=== PATIENT | male | born 1985 | race Caucasian/White ===

== ENCOUNTER 2019-06-10 10:36 | Inpatient (IN) | payer OTHER ==
[~2019-06-10] VITALS: Ht 162.6 cm; Wt 61.2 kg
[2019-06-10] MEDS ORDERED: ONDANSETRON 4 MG/2 ML VIAL IV ONE (11:00)
[2019-06-10] MEDS ORDERED: LEVOFLOXACIN 750 MG/D5W 150 ML PIGGYBACK IV ONE (11:00)
[2019-06-10] MEDS ORDERED: METRONIDAZOLE 500 MG/NS 100 ML PIGGYBACK IV ONE (11:00)
[2019-06-10] MEDS ORDERED: MORPHINE SULFATE 2 MG/1 ML DISP.SYRIN IV ONE (11:00)
[2019-06-10] MEDS ORDERED: LEVOFLOXACIN 750MG/D5W 150 ML IV ONE (11:09)
[2019-06-10] MEDS ORDERED: ONDANSETRON 4 MG/2 ML VIAL ONE (11:09)
[2019-06-10] MEDS ORDERED: MORPHINE SULFATE 4 MG/1 ML DISP.SYRIN ONE (11:09)
[2019-06-10] MEDS ORDERED: METRONIDAZOLE 500 MG/NS 100ML 100 ML IV ONE (11:09)
[2019-06-10] MEDS ORDERED: LIDOCAINE 2% (UROJET) 10 ML JELLY MM ONE ×2 (11:15→11:16)
[2019-06-10 11:39] LABS: *BILIRUBIN,URIN NEGATIVE (NEGATIVE); *CLARITY,URINE CLEAR (CLEAR); *COLOR,URINE YELLOW (YELLOW); *KETONES,URINE NEGATIVE (NEGATIVE); *UROBILINOGEN,URINE 0.2 E.U./dl (NORMAL); LEUKOCYTE ESTERASE ,URINE NEGATIVE (NEGATIVE); NITRITE, URINE NEGATIVE (NEGATIVE); PH,URINE 7.5 (5.0-8.0); UGLUCOSE NEGATIVE (NEGATIVE)
[2019-06-10 11:40] LABS: *BLOOD, URINE TRACE (NEGATIVE)
[2019-06-10] MEDS ORDERED: IV NORMAL SALINE 1000 ML BAG IV ONE (11:45)
[2019-06-10 11:46] LABS: BACTERIA,URINE NONE SEEN /HPF (NONE SEEN); SQUAMOUS EPITHELIAL CELL,UR FEW /HPF (NONE SEEN); WBC,URINE 0-3 /HPF (0-3)
[2019-06-10 11:47] LABS: URINE AMORPHOUS PHOSPHATES MODERATE /HPF
[2019-06-10 11:59] LABS: BASOPHILS # (AUTO) 0.1 K/uL (0.0-8.0); BASOPHILS % (AUTO) 0.5 % (0.0-2.0); EOSINOPHILS % (AUTO) 0.2 % (0.0-7.0); HEMATOCRIT 42.6 % (36.7-47.1); HEMOGLOBIN 13.9 g/dL (12.5-16.3); LYMPHOCYTES # (AUTO) 1.9 K/uL (20.0-40.0); LYMPHOCYTES % (AUTO) 10.6 % (20.5-51.5); MEAN CORPUSCULAR HEMOGLOBIN 28.9 uug (23.8-33.4); MEAN CORPUSCULAR HGB CONC 33 g/dL (32.5-36.3); MEAN CORPUSCULAR VOLUME 88.4 fL (73.0-96.2); MONOCYTES # (AUTO) 1.8 K/uL (2.0-10.0); MONOCYTES % (AUTO) 10.2 % (0.0-11.0); NEUTROPHILS % (AUTO) 78.5 % (38.5-71.5); PLATELET COUNT (AUTO) 295 K/uL (152-348); RED BLOOD CELL COUNT(AUTO) 4.82 MIL/uL (4.06-5.63); WHITE BLOOD COUNT (AUTO) 17.8 K/uL (3.6-10.2)
[2019-06-10] MEDS ORDERED: HYDROMORPHONE 1 MG/1 ML DISP.SYRIN ONE (11:59)
[2019-06-10] MEDS ORDERED: HYDROMORPHONE 1 MG/1 ML DISP.SYRIN IV ONE (12:00)
[2019-06-10 12:08] LABS: CREATININE 0.9 mg/dL (0.6-1.3); POTASSIUM 4.1 mmol/L (3.5-5.1)
[2019-06-10 12:14] LABS: BILIRUBIN,DIRECT 0.1 mg/dL (0.0-0.2); BILIRUBIN,TOTAL 0.4 mg/dL (0.2-1.0); TOTAL PROTEIN, SERUM 7.4 g/dL (6.4-8.2)
[2019-06-10] MEDS ORDERED: METOCLOPRAMIDE HCL 10 MG TABLET PO ONE (12:15)
[2019-06-10] MEDS ORDERED: METOCLOPRAMIDE HCL 10 MG TABLET ONE (12:16)
[2019-06-10] MEDS ORDERED: IOHEXOL 300MG/ML 100 ML INFUS..BTL ONE (12:27)
[2019-06-10] MEDS ORDERED: SWABABLE VALVE TRANSFER SET EA MC ONE (12:27)
[2019-06-10] MEDS ORDERED: IV NORMAL SALINE 250 ML IV ONE (13:18)
[2019-06-10] MEDS ORDERED: LIDOCAINE HCL 2% 20 ML VIAL ONE (13:19)
[2019-06-10] MEDS ORDERED: LET TOPICAL SOLUTION 8 ML UDC ONE (13:19)
[2019-06-10] MEDS ORDERED: SODIUM BICARBONATE 4.2 % (NEUT) 5 ML VIAL ONE (13:24)
[2019-06-10] MEDS ORDERED: LET TOPICAL SOLUTION 8 ML UDC TP ONE (13:30)
[2019-06-10] MEDS ORDERED: LIDOCAINE HCL 2% 20 ML VIAL TP ONE (13:30)
[2019-06-10] MEDS ORDERED: SODIUM BICARBONATE 4.2 % (NEUT) 5 ML VIAL TP ONE (13:30)
[2019-06-10] MEDS ORDERED: HYDROCODONE/APAP 5-325MG TABLET PO PRN (17:30)
[2019-06-10] MEDS ORDERED: MAGNESIUM HYDROXIDE 30 ML LIQUID UDC PO PRN (17:30)
[2019-06-10] MEDS ORDERED: ONDANSETRON 4 MG/2 ML VIAL IV PRN (17:30)
[2019-06-10] MEDS ORDERED: ACETAMINOPHEN 325 MG TABLET PO PRN (17:30)
[2019-06-10] MEDS ORDERED: ZOLPIDEM 5 MG TABLET PO PRN (17:30)
[2019-06-10] MEDS ORDERED: IV NS 1000 ML 1,000 ML IV PRN (17:30)
[2019-06-10] MEDS: SULFAMETH/TRIMETH 800/160 MG TABLET PO SCH ×2 (17:43→20:20)
[2019-06-10 20:09] VITALS: BP 108/63
[2019-06-11 05:02] VITALS: BP 101/56
[2019-06-11 06:43] LABS: BASOPHILS # (AUTO) 0.1 K/uL (0.0-8.0); BASOPHILS % (AUTO) 1.1 % (0.0-2.0); EOSINOPHILS # (AUTO) 0.3 K/uL (0.0-0.7); EOSINOPHILS % (AUTO) 3.5 % (0.0-7.0); HEMOGLOBIN 13.2 g/dL (12.5-16.3); LYMPHOCYTES # (AUTO) 2.3 K/uL (20.0-40.0); LYMPHOCYTES % (AUTO) 23.7 % (20.5-51.5); MEAN CORPUSCULAR HEMOGLOBIN 28.6 uug (23.8-33.4); MEAN CORPUSCULAR HGB CONC 32 g/dL (32.5-36.3); MEAN CORPUSCULAR VOLUME 88.5 fL (73.0-96.2); MONOCYTES # (AUTO) 1.1 K/uL (2.0-10.0); MONOCYTES % (AUTO) 11.6 % (0.0-11.0); NEUTROPHILS # (AUTO) 5.8 K/uL (1.8-8.9); NEUTROPHILS % (AUTO) 60.1 % (38.5-71.5); PLATELET COUNT (AUTO) 303 K/uL (152-348); RED BLOOD CELL COUNT(AUTO) 4.64 MIL/uL (4.06-5.63); WHITE BLOOD COUNT (AUTO) 9.7 K/uL (3.6-10.2)
[2019-06-11 07:27] LABS: CREATININE 0.9 mg/dL (0.6-1.3); MAGNESIUM 1.9 mg/dL (1.8-2.4); PHOSPHOROUS 3.9 mg/dL (2.5-4.9); POTASSIUM 4.7 mmol/L (3.5-5.1)
[2019-06-11] MEDS: SULFAMETH/TRIMETH 800/160 MG TABLET PO SCH (08:49)
[2019-06-11 10:30] VITALS: BP 98/58
[2019-06-11] MEDS ORDERED: SULF1TAB48 PO (11:22)
== END 2019-06-11 10:35 | disposition left against medical advice (07) | DRG 254 ==
LOC: ER 10:41 → MEDSURG3 15:08
PROVIDERS: ADMIT Nurse Practitioner Acute Care; ATTEND Nurse Practitioner Acute Care
PROC: 0D9P3ZZ Drainage of Rectum, Percutaneous Approach (ICD-10-PCS; principal; 2019-06-10)
DX: K61.1 Rectal abscess (principal); F15.10 Other stimulant abuse, uncomplicated; Z59.0 Homelessness; F17.210 Nicotine dependence, cigarettes, uncomplicated
CPT/HCPCS: 36415; 83735; 84100; 85025; 85730; 87086; A4217; A4663; G0378; J1170; J1956; J2270; J2405; J3490; J7030; J7050; J8597; Q9967